=== PATIENT | female | born 1980 | race Caucasian/White ===

== ENCOUNTER 2023-05-04 14:44 | Emergency (ER) | payer OTHER, SELFPAY ==
[2023-05-04 14:50] VITALS: BP 180/110
[2023-05-04 15:06] LABS: % Basophils 0.3 % (0-2); % Eosinophils 1.2 % (0-6); % Immature Granulocytes 0.4 % (0-0.5); % Lymphocytes 17.4 % (20.5-51.1); % Monocytes 6.3 % (1.7-9.3); % Neutrophils 74.4 % (42.2-75.2); Absolute Eosinophils 0.1 10^3/uL (0-0.7); Absolute Lymphocytes 1.6 10^3/uL (1.2-3.4); Absolute Monocytes 0.6 10^3/uL (0.1-0.6); Hematocrit 39.6 % (37.0-47.0); Mean Corp Hgb Conc. 35.4 g/dL (33.0-37.0); Mean Corpuscular Hgb 32.3 pg (27.0-31.0); Mean Corpuscular Volume 91.2 fL (81.0-99.0); Mean Platelet Volume 10.1 fL (7.4-10.4); Nucleated Red Blood Cells % 0 %; Platelet Count 194 10^3/uL (130-400); Red Blood Cell Count 4.34 10^6/uL (4.20-5.40); Red Cell Dist. Width 12.3 % (11.5-14.5); White Blood Cell Count 9.4 10^3/uL (4.8-10.8)
[2023-05-04 15:15] LABS: HCG, Serum Qualitative Screen Negative
[2023-05-04 15:18] LABS: ALT (SGPT) 14 U/L (0-35); AST (SGOT) 25 U/L (14-36); Albumin 4.4 g/dl (3.5-5.0); Alkaline Phosphatase 54 U/L (38-126); Blood Urea Nitrogen 15 mg/dl (7-17); Calcium 9.3 mg/dl (8.4-10.2); Carbon Dioxide 31 mmol/L (22-30); Chloride 102 mmol/L (98-107); Glucose 87 mg/dl (70-99); Potassium 3.1 mmol/L (3.5-5.1); Sodium 136 mmol/L (135-145); Total Bilirubin 0.4 mg/dl (0.2-1.3); Total Protein 6.8 g/dl (6.3-8.2); eGFR > 60.00
[2023-05-04 16:12] VITALS: BMI 19.5
[2023-05-04 16:14] VITALS: BP 132/105
[2023-05-04 17:09] LABS: Troponin I < 0.012 ng/ml
--- NOTE | 2023-05-04 17:15 | ED.GENMED ---
History of Present Illness
General
Chief Complaint: Blood Pressure Problem
Time Seen by Provider: 05/04/23 15:51
Travel History
Have you had any contact with someone who has COVID-19?: No
Do you have any symptoms of coronavirus? Fever > 100 degrees, chills, cough, shortness of breath, sore throat, loss of taste or smell, muscle aches, or headache?: No
History of Present Illness
History of Present Illness:
43-year-old female presents to the emergency department for evaluation of persistent high blood pressure ongoing for the past several days. She notes that she has had a viral upper respiratory tract infection since last week and over the past 2
days has been lightheaded and developed chest tightness. She checked her blood pressure at home today and it was 140/90. She has no known history of high blood pressure but admits that she does not routinely see primary care. She has had a blood
pressure check from annual basis at her occupational health clinic. No vision changes or headaches
Review of Systems
Review of Systems
Allergies reviewed?: Yes
All Other Systems: ROS reviewed and negative except as documented in HPI and ROS
Phy Exam
Physical Exam
Physical Exam:
GEN: Well appearing, NAD, WDWN
HEENT: Oral mucosa moist, no scleral icterus
Cardiac: Regular rate and rhythm, no murmurs
Lung: No respiratory distress, no tachypnea, lungs clear to auscultation bilaterally
MSK: No gross deformity or injuries
Skin: Good color, no pallor or jaundice, no rashes
Neuro: AO x3, moves all extremities freely
Psych: Calm, cooperative
Course
Orders/Labs/Results
Orders:
Orders
05/04/23 14:54
Electrocardiogram (*1) Urgent
Reason for Study: Hypertension, Benign
EKG- Treatment ONCE
Test Result ONCE
05/04/23 14:58
Comprehensive Metabolic Panel Urgent
HCG, Serum Qualitative Screen Urgent
05/04/23 14:59
Complete Blood Count/With Diff Urgent
05/04/23 15:58
Add On- LAB Urgent
Tests Added?: troponin
05/04/23 16:36
Troponin I Urgent
Abnormal Lab Results
24 05/04/23
14:58 14:59
MCH 32.3 H pg
(27.0-31.0)
Absolute Neuts (auto) 7.0 H 10^3/uL
(1.4-6.5)
Lymphocytes % 17.4 L %
(20.5-51.1)
Potassium 3.1 L mmol/L
(3.5-5.1)
Carbon Dioxide 31 H mmol/L
(22-30)
05/04/23 14:59
05/04/23 14:58
Vital Signs
Initial and Last Documented VS:
Initial Vital Signs
Temp Pulse Resp BP Pulse Ox
98.2 F 93 16 180/110 98
05/04/23 14:50 05/04/23 14:50 05/04/23 14:50 05/04/23 14:50 05/04/23 14:50
Last Documented Vital Signs
Temp Pulse Resp BP Pulse Ox
98.2 F 78 16 132/105 98
05/04/23 14:50 05/04/23 16:14 05/04/23 14:50 05/04/23 16:14 05/04/23 16:14
MDM/Problems Addressed
MDM/Problems Addressed:
Patient's blood pressure markedly elevated on arrival however did downtrend in the emergency department. Of particular concern is that her diastolic readings seem to be the more elevated aspect of her blood pressure. I feel her chest symptoms are
more likely on the basis of her viral respiratory symptoms. Labs are reassuring. Will start the patient on once daily amlodipine, outpatient follow-up with family medicine [facility] clinic provided
Comment
Comment:
EKG independently interpreted by me shows a normal sinus rhythm at a rate of [address] changes concerning for ischemia
*Critical Care Note
Total Time (30-74mins, 75-104mins- exclusive of procedures): Not Applicable
ED Attending Note
-
Portions of this chart may have been created with voice recognition software.� Occasional wrong word or��sound alike� substitutions may have occurred due to the inherent limitations of voice recognition software.
Discharge Plan
Departure
Patient Disposition: Home (Routine Discharge)
Date of Disposition: 05/04/23
Time of Disposition: 17:16
Patient with high blood pressure during this ER visit?: No
Discharge Problem:
Hypertension
Instructions: High Blood Pressure (DC)
Prescriptions:
New
amlodipine 5 mg tablet
5 mg PO DAILY Qty: 30 0RF
Referrals:
NONE,* [Family Provider] -
Activity Restrictions/Additional Instructions:
[facility]
[address]
[place] [address]
[phone]
Interventions
Interventions:
*Risk Screen - Suicide Last Done: 05/04/23 16:12
*General Assessment Last Done: 05/04/23 16:12
*Neglect/Abuse Screening Last Done: 05/04/23 16:12
ED- Fall Risk Assessment Last Done: 05/04/23 16:12
*ED COVID-19 Vaccine History Last Done: 05/04/23 14:50
*Nursing Disposition Last Done: 05/04/23 17:34
ED- Cardiac Assessment Last Done: 05/04/23 16:12
ED- Neurological Assessment Last Done: 05/04/23 16:12
ED- Pulmonary Assessment Last Done: 05/04/23 16:12
Discharge Date and Time
Discharge Date/Time: 05/04/23 17:34
== END 2023-05-04 17:34 | disposition home or self-care (01) ==
LOC: EMR 14:44
PROVIDERS: Emergency Medicine; EMERGENCY PHYSICIAN Emergency Medicine
DX: I10 Essential (primary) hypertension (principal); R42 Dizziness and giddiness; R07.89 Other chest pain
CPT/HCPCS: 99284; 80053; 84484; 84703; 85025; 93005

== ENCOUNTER → 2023-06-09 14:13 | Outpatient (REF) | payer OTHER, SELFPAY | LOC: WDC 14:13 | PROVIDERS: ATTENDING PHYSICIAN Student in an Organized Health Care Education/Training Program | DX: N64.4 Mastodynia (principal); Z80.3 Family history of malignant neoplasm of breast | CPT/HCPCS: 76642; 77062; 77066 ==

== ENCOUNTER → 2023-07-07 10:01 | Outpatient (REF) | payer OTHER, SELFPAY | LOC: DHCBC HW 10:01 | PROVIDERS: ATTENDING PHYSICIAN Internal Medicine Cardiovascular Disease; FAMILY PHYSICIAN Student in an Organized Health Care Education/Training Program | DX: R07.2 Precordial pain (principal); I10 Essential (primary) hypertension; R06.09 Other forms of dyspnea | CPT/HCPCS: 93306 ==

== ENCOUNTER → 2023-07-24 10:08 | Outpatient (REF) | payer OTHER, SELFPAY | LOC: RCS 10:08 | PROVIDERS: ATTENDING PHYSICIAN Internal Medicine Cardiovascular Disease; FAMILY PHYSICIAN Student in an Organized Health Care Education/Training Program | DX: R07.2 Precordial pain (principal); I10 Essential (primary) hypertension; R06.09 Other forms of dyspnea | CPT/HCPCS: 93017 ==

== ENCOUNTER → 2024-04-12 14:18 | Outpatient (REF) | payer OTHER, SELFPAY | LOC: WDC 14:18 | PROVIDERS: ATTENDING PHYSICIAN Student in an Organized Health Care Education/Training Program | DX: R92.8 Other abnormal and inconclusive findings on diagnostic imaging of breast (principal) | CPT/HCPCS: 76642 ==